=== PATIENT | male | born 1985 ===

== ENCOUNTER 2019-04-23 13:58 | Emergency (ER) | payer OTHER ==
[2019-04-23 14:07] VITALS: BP 129/80
--- NOTE | 2019-04-23 14:50 | UC ---
Ear Complaint HPI - HPI Summary HPI Summary: Patient is a 33yo male presenting with left ear pain and sore throat x4 days. Notes nasal congestion and sinus tenderness. Notes tender lymph nodes on anterior neck. Denies fever, chills, n/v/d. Denies SOB and wheezing. Patient notes history of ear infections. Patient also notes enlarged submandibular lymph node that has been present x2 years. He denies tenderness of this node. States he was worked up for it in [facility] [place] where his is from but was never biopsied or given a diagnosis. Denies recent weight loss or gain, night sweats, or changes in appetite. - History of Current Complaint Chief Complaint: UCEar Stated Complaint: EAR PAIN Hx Obtained From: Patient Onset/Duration: Sudden Onset Severity Initially: Moderate Pain Intensity: 6 Pain Scale Used: 0-10 Numeric - Allergies/Home Medications Allergies/Adverse Reactions: Allergies Allergy/AdvReac Type Severity Reaction Status Date / Time No Known Allergies Allergy Verified 04/23/19 14:07 PMH/Surg Hx/FS Hx/Imm Hx Previously Healthy: Yes - Surgical History Surgical History: Yes Surgery Procedure, Year, and Place: appy 2016. ears - Family History Known Family History: Positive: Unknown - Social History Alcohol Use: None Substance Use Type: None Smoking Status (MU): Never Smoked Tobacco Review of Systems All Other Systems Reviewed And Are Negative: Yes Constitutional: Positive: Negative. Negative: Fever, Chills, Fatigue Skin: Positive: Negative Eyes: Positive: Negative ENT: Positive: Sore Throat, Ear Ache - lt ear, Sinus Congestion, Sinus Pain/ Tenderness. Negative: Nasal Discharge Respiratory: Positive: Negative. Negative: Shortness Of Breath, Cough Cardiovascular: Positive: Negative. Negative: Palpitations, Chest Pain Gastrointestinal: Positive: Negative. Negative: Abdominal Pain, Vomiting, Diarrhea, Nausea Genitourinary: Positive: Negative Musculoskeletal: Positive: Negative Neurological: Positive: Negative Physical Exam Triage Information Reviewed: Yes Appearance: Well-Appearing, No Pain Distress, Well-Nourished Vital Signs: Initial Vital Signs Temp 98.3 F 04/23/19 14:03 Pulse 82 04/23/19 14:03 Resp 18 04/23/19 14:03 BP 129/80 04/23/19 14:03 Pulse Ox 99 04/23/19 14:03 Vital Signs Reviewed: Yes Eyes: Positive: Conjunctiva Clear ENT: Positive: Hearing grossly normal, Pharyngeal erythema, Nasal congestion, Nasal drainage, TM bulging - lt TM, TM dull - lt TM, TM red - lt TM, Tonsillar swelling, Sinus tenderness, Uvula midline. Negative: TMs normal - rt TM normal , Tonsillar exudate, Hoarse voice Neck: Positive: Supple, No Lymphadenopathy, Other: - submandibular node is mobile, round, and rubbery on exam. Negative: Nontender - tenderness to anterior cervial lymph nodes bilaterally. Respiratory Exam: Normal Respiratory: Positive: Lungs clear, Normal breath sounds, No respiratory distress, No accessory muscle use. Negative: Crackles, Rhonchi, Stridor, Wheezing Cardiovascular Exam: Normal Cardiovascular: Positive: RRR. Negative: Tachycardia Neurological: Positive: Alert Psychological: Positive: Age Appropriate Behavior Skin Exam: Normal Ear Complaint Course/Dx - Course Course Of Treatment: Discussed with patient to take amoxicillin for treatment of ear infection and that OTC cold medications may be used in conjunction. I instructed the patient to follow up with the ENT referral for further evaluation of the enlarged node, which is causing him concern. Patient voiced understanding and agreed to treatment plan. - Differential Dx/Diagnosis Provider Diagnosis: Otitis media, Enlargement of submandibular gland, Upper respiratory infection, acute Discharge ED - Sign-Out/Discharge Documenting (check all that apply): Patient Departure All imaging exams completed and their final reports reviewed: No Studies - Discharge Plan Condition: Stable Disposition: HOME Prescriptions: Amoxicillin PO (*) [Amoxicillin 500 MG CAP*] 500 mg PO TID #21 cap Patient Education Materials: Lymphadenopathy (ED) Referrals: [facility] [Outside] - If Needed [facility] [Outside] - If Needed Jovanni De Leon MD [Medical Doctor] - As Soon As Possible Additional Instructions: As discussed, take Amoxicillin as prescribed for your ear infection. You may take over the counter cough and cold medications as directed for symptomatic relief. Follow up with your primary care physician or the Physician Referral as listed below if symptoms persist. Follow up with the ENT referral as listed below for further evaluation of your enlarged lymph node. - Billing Disposition and Condition Condition: STABLE Disposition: Home
== END 2019-04-23 15:20 | disposition home or self-care (01) ==
LOC: UCEAST 13:58
DX: H66.91 Otitis media, unspecified, right ear (principal); R59.0 Localized enlarged lymph nodes; J06.9 Acute upper respiratory infection, unspecified
CPT/HCPCS: 99202; G0463